=== PATIENT | female | born 1965 | race African-American/Black ===

== ENCOUNTER 2018-07-07 | Inpatient (IN) | payer MEDICAID, OTHER ==
[~2018-07-07] VITALS: Ht 165.1 cm; Wt 73.2 kg
[~2018-07-07] MED LIST: FOLI-43 PO; HYDR-519 PO
[2018-07-07 04:31] LABS: CHLORIDE 100 mEq/L (98-107)
[2018-07-07] MEDS ORDERED: MORPHINE SULFATE 10 MG/ML CPJ IV SCH (05:00)
[2018-07-07] MEDS ORDERED: DIPHENHYDRAMINE 25MG CAPSULE PO SCH (05:00)
[2018-07-07 06:33] LABS: HEMATOCRIT. 44.9 % (36.0-48.0); HEMOGLOBIN. 14.9 g/dL (12.0-16.0); MEAN CORPUSCULAR HEMOGLOBIN 32.8 pg (28.0-32.0); MEAN CORPUSCULAR VOLUME 98.8 fL (81.0-99.0); MEAN PLATELET VOLUME 10.9 fl (7.4-10.4); PLATELET 295 x1000/uL (130-400); RED BLOOD CELL COUNT 4.55 mill/uL (4.2-5.4); RED CELL DISTRIBUTION WIDTH 42.4 % (11.6-14.6)
[2018-07-07] MEDS ORDERED: VANCOMYCIN 1 G PREMIX 200 ML IV SCH (06:45)
[2018-07-07] MEDS ORDERED: HYDROMORPHONE HCL/PF 2MG/ML CPJ IV ONE (06:45)
[2018-07-07] MEDS ORDERED: PIPERACILLIN/TAZOBACTAM 3.375GM/50ML PREMIX IV ONE (06:45)
[2018-07-07 07:41] LABS: NUCLEATED RED BLOOD CELLS 89 /100 WBC
[2018-07-07 07:44] LABS: PLATELET ESTIMATE NORMAL
[2018-07-07] MEDS ORDERED: ONDANSETRON HCL 4MG/2ML INJ IV PRN (07:45)
[2018-07-07 07:52] LABS: CLARITY URINE TURBID (CLEAR); COLOR URINE RED (YELLOW); KETONES URINE 2+ (NEGATIVE); LEUKOCYTE ESTERASE URINE 2+ (NEGATIVE); NITRITE URINE POSITIVE (NEGATIVE); OCCULT BLOOD URINE 3+ (NEGATIVE); PROTEIN URINE 3+ (NEGATIVE); SPECIFIC GRAVITY URINE 1.015 (1.005-1.030)
[2018-07-07] MEDS: MORPHINE SULFATE 10 MG/ML CPJ IV PRN ×3 (08:24→20:52)
[2018-07-07] MEDS: DIPHENHYDRAMINE 50MG/ML VIAL IV PRN ×2 (08:24→15:24)
[2018-07-07 09:00] VITALS: BP 153/88
[2018-07-07 09:10] LABS: *BARBITURATES SCREEN URINE NEGATIVE (NEGATIVE)
[2018-07-07 09:13] LABS: *AMPHETAMINES SCREEN URINE NEGATIVE (NEGATIVE)
[2018-07-07] MEDS ORDERED: ESTR0.3T3 MT (09:21)
[2018-07-07] MEDS ORDERED: OXYC30TA89 MT (09:21)
[2018-07-07 09:50] LABS: *BENZODIAZEPINES SCREEN URINE NEGATIVE (NEGATIVE); *COCAINE SCREEN URINE NEGATIVE (NEGATIVE); CANNABINOID URINE SCREEN NEGATIVE (NEGATIVE); METHADONE URINE SCREEN NEGATIVE (NEGATIVE); OPIATES URINE SCREEN PRESUMTIVE POSITIVE (NEGATIVE); PHENCYCLIDINE URINE SCREEN NEGATIVE (NEGATIVE)
[2018-07-07] MEDS ORDERED: DOCU-138 PO (10:06)
[2018-07-07] MEDS: FOLIC ACID 1MG TABLET PO SCH (10:24)
[2018-07-07] MEDS: AMLODIPINE 5MG TABLET PO SCH ×2 (10:25→20:44)
[2018-07-07 12:00] VITALS: BP 154/89
[2018-07-07] MEDS: CEFTRIAXONE 1 G PREMIX 50 ML IV SCH (15:23)
[2018-07-07 16:00] VITALS: BP 134/77
[2018-07-07] MEDS: HYDROCODONE/ACETAMINOPHEN 10/325MG TABLET PO PRN ×2 (17:10→22:54)
[2018-07-07 20:00] VITALS: BP 138/77
[2018-07-08] VITALS (7 sets, daily range): BP systolic 124–146; BP diastolic 69–87
[2018-07-08 00:41] LABS: HEMATOCRIT. 22.6 % (36.0-48.0); MEAN CORPUSCULAR HEMOGLOBIN 36.5 pg (28.0-32.0); MEAN CORPUSCULAR VOLUME 104.8 fL (81.0-99.0); MEAN PLATELET VOLUME 8.3 fl (7.4-10.4); PLATELET 188 x1000/uL (130-400); RED BLOOD CELL COUNT 2.15 mill/uL (4.2-5.4); RED CELL DISTRIBUTION WIDTH 28.5 % (11.6-14.6)
[2018-07-08] MEDS: MORPHINE SULFATE 10 MG/ML CPJ IV PRN ×5 (00:49→22:07)
[2018-07-08] MEDS: DIPHENHYDRAMINE 50MG/ML VIAL IV PRN ×3 (00:56→17:26)
[2018-07-08 01:00] LABS: HEMOGLOBIN. 7.8 g/dL (12.0-16.0)
[2018-07-08] MEDS: HYDROCODONE/ACETAMINOPHEN 10/325MG TABLET PO PRN ×4 (03:26→18:58)
[2018-07-08 06:55] LABS: HEMATOCRIT. 24.4 % (36.0-48.0); HEMOGLOBIN. 8.4 g/dL (12.0-16.0); MEAN CORPUSCULAR HEMOGLOBIN 36.6 pg (28.0-32.0); MEAN CORPUSCULAR VOLUME 105.6 fL (81.0-99.0); MEAN PLATELET VOLUME 7.8 fl (7.4-10.4); PLATELET 185 x1000/uL (130-400); RED BLOOD CELL COUNT 2.31 mill/uL (4.2-5.4); RED CELL DISTRIBUTION WIDTH 28.9 % (11.6-14.6)
[2018-07-08 07:10] LABS: CHLORIDE 99 mEq/L (98-107)
[2018-07-08 08:30] LABS: NUCLEATED RED BLOOD CELLS 339 /100 WBC; PLATELET ESTIMATE NORMAL
[2018-07-08] MEDS: AMLODIPINE 5MG TABLET PO SCH ×2 (08:35→20:16)
[2018-07-08] MEDS: FOLIC ACID 1MG TABLET PO SCH (08:35)
[2018-07-08] MEDS ORDERED: LACTULOSE 20G/30ML UDC PO NR (11:45)
[2018-07-08 14:24] LABS: NUCLEATED RED BLOOD CELLS 239 /100 WBC
[2018-07-08 14:28] LABS: PLATELET ESTIMATE NORMAL
[2018-07-08] MEDS: DOCUSATE SODIUM 250MG CAPSULE PO SCH (15:02)
[2018-07-08] MEDS: CEFTRIAXONE 1 G PREMIX 50 ML IV SCH (15:02)
[2018-07-09] VITALS: BP 119/75
[2018-07-09] MEDS: DIPHENHYDRAMINE 50MG/ML VIAL IV PRN ×2 (02:53→20:49)
[2018-07-09] MEDS: MORPHINE SULFATE 10 MG/ML CPJ IV PRN ×3 (02:54→20:49)
[2018-07-09 04:00] VITALS: BP 133/83
[2018-07-09] MEDS: HYDROCODONE/ACETAMINOPHEN 10/325MG TABLET PO PRN ×2 (06:09→11:46)
[2018-07-09 07:49] LABS: HEMATOCRIT. 28.2 % (36.0-48.0); HEMOGLOBIN. 9.6 g/dL (12.0-16.0); MEAN CORPUSCULAR HEMOGLOBIN 37.5 pg (28.0-32.0); MEAN CORPUSCULAR VOLUME 110.7 fL (81.0-99.0); MEAN PLATELET VOLUME 8.6 fl (7.4-10.4); PLATELET 171 x1000/uL (130-400); RED BLOOD CELL COUNT 2.55 mill/uL (4.2-5.4); RED CELL DISTRIBUTION WIDTH 27.8 % (11.6-14.6)
[2018-07-09 08:00] VITALS: BP 120/69
[2018-07-09 08:14] LABS: CHLORIDE 99 mEq/L (98-107)
[2018-07-09] MEDS ORDERED: POLYETHYLENE GLYCOL 3350 (17GM) 1 DOSE PACK PO SCH (09:00)
[2018-07-09] MEDS: FOLIC ACID 1MG TABLET PO SCH (09:19)
[2018-07-09] MEDS: DOCUSATE SODIUM 250MG CAPSULE PO SCH (09:23)
[2018-07-09] MEDS: AMLODIPINE 5MG TABLET PO SCH ×2 (09:23→20:48)
[2018-07-09] MEDS: POLYETHYLENE GLYCOL 3350 (17GM) 1 DOSE PACK PO SCH ×2 (09:26→09:31)
[2018-07-09 10:20] LABS: NUCLEATED RED BLOOD CELLS 225 /100 WBC
[2018-07-09 10:22] LABS: PLATELET ESTIMATE NORMAL
[2018-07-09 12:00] VITALS: BP 113/67
[2018-07-09] MEDS: CEFTRIAXONE 1 G PREMIX 50 ML IV SCH (15:11)
[2018-07-09 16:00] VITALS: BP 105/70
[2018-07-09 20:00] VITALS: BP 114/66
[2018-07-10] VITALS (42 sets, daily range): BP systolic 95–169; BP diastolic 53–104
[2018-07-10] MEDS: AMLODIPINE 5MG TABLET PO SCH ×2 (09:00→22:40)
[2018-07-10] MEDS: DOCUSATE SODIUM 250MG CAPSULE PO SCH (09:00)
[2018-07-10] MEDS: FOLIC ACID 1MG TABLET PO SCH (09:00)
[2018-07-10] MEDS ORDERED: IOHEXOL-300 50 ML BOTTLE IV ONE (10:49)
[2018-07-10] MEDS ORDERED: ETOMIDATE 2MG/ML 10ML VIAL IV ONE (12:16)
[2018-07-10] MEDS ORDERED: VECURONIUM BROMIDE 10 MG/VIAL IV ONE (12:16)
[2018-07-10] MEDS ORDERED: SODIUM CHLORIDE 0.9% 10ML VIAL ONE ×2 (12:16→19:09)
[2018-07-10 12:48] LABS: T4 FREE 1.12 ng/dL (0.76-1.46)
[2018-07-10 13:26] LABS: VITAMIN B12 SERUM > 2000.0 pg/mL (211-911)
[2018-07-10] MEDS ORDERED: MANNITOL 12.5G (25%) VIAL 50ML IV ONE (15:00)
[2018-07-10] MEDS ORDERED: MANNITOL 20% 200 ML IV ONE (15:00)
[2018-07-10] MEDS: LEVETIRACETAM 500 MG in SODIUM CHLORIDE 0.9% 100 ML IV SCH ×2 (15:19→15:26)
[2018-07-10] MEDS: CEFTRIAXONE 1 G PREMIX 50 ML IV SCH (15:20)
[2018-07-10] MEDS: DEXAMETHASONE 10 MG/ML VIAL IV SCH ×2 (15:24→15:25)
[2018-07-10] MEDS: NICARDIPINE 50 MG in SODIUM CHLORIDE 0.9% 230 ML IV PRN (15:27)
[2018-07-10] MEDS: DEXT 5%/LACTATED RINGERS 1,000 ML IV SCH ×2 (15:34→23:15)
[2018-07-10 15:46] LABS: BG BASE EXCESS 2.6 mmol/L (-2.0-2.0); BG CARBOXYHEMOGLOBIN 2.3 % (0.5-1.5); BG DEOXYHEMOGLOBIN 1.3 % (0.0-5.0); BG FRACTION INSPIRED OXYGEN 32; BG HCO3 ACT 24.3 mmol/L (22.0-26.0); BG METHEMOGLOBIN 0.8 % (0.0-1.5); BG OXYGEN SATURATION 98.7 % (92.0-98.5); BG OXYHEMOGLOBIN 95.6 % (94.0-97.0); BG PCO2 26.5 mmHg (35.0-45.0); BG PO2 109.3 mmHg (75.0-100.0); BG SAMPLE SITE LEFT BRACHIAL; BG TOTAL HEMOGLOBIN 7.9 g/dL (12.0-18.0); BG VENT MODE NASAL CANNULA
[2018-07-10] MEDS ORDERED: GADOBENATE DIMEGLUMINE 529 MG/ML 10ML IV ONE (16:18)
[2018-07-10 16:35] LABS: INR 1.9; PARTIAL THROMBOPLASTIN TIME 28.5 sec (23.4-31.0)
[2018-07-10 16:55] LABS: CHLORIDE 103 mEq/L (98-107)
[2018-07-10 16:57] LABS: HEMATOCRIT. 22.4 % (36.0-48.0); HEMOGLOBIN. 7.6 g/dL (12.0-16.0); MEAN CORPUSCULAR HEMOGLOBIN 36.8 pg (28.0-32.0); MEAN CORPUSCULAR VOLUME 108.4 fL (81.0-99.0); MEAN PLATELET VOLUME 9.1 fl (7.4-10.4); PLATELET 188 x1000/uL (130-400); RED BLOOD CELL COUNT 2.07 mill/uL (4.2-5.4); RED CELL DISTRIBUTION WIDTH 25.8 % (11.6-14.6)
[2018-07-10] MEDS ORDERED: GELATIN SPONGE,ABSORBABLE 12-7MM SPONGE ONE ×2 (17:27→17:55)
[2018-07-10] MEDS ORDERED: THROMBIN (BOVINE) 5000 UNITS/VIAL TOP ONE ×3 (17:28→17:55)
[2018-07-10] MEDS ORDERED: LIDOCAINE HCL/EPINEPHRINE 1%-EPI 1:100,000 20 ML VIAL ONE (17:29)
[2018-07-10 17:31] LABS: BG BASE EXCESS 2.3 mmol/L (-2.0-2.0); BG CARBOXYHEMOGLOBIN 1.8 % (0.5-1.5); BG DEOXYHEMOGLOBIN 0.3 % (0.0-5.0); BG FRACTION INSPIRED OXYGEN 100; BG METHEMOGLOBIN 0.8 % (0.0-1.5); BG OXYGEN SATURATION 99.7 % (92.0-98.5); BG OXYHEMOGLOBIN 97.1 % (94.0-97.0); BG PCO2 22.5 mmHg (35.0-45.0); BG PH 7.628 (7.350-7.450); BG PO2 478.1 mmHg (75.0-100.0); BG SAMPLE SITE RIGHT RADIAL; BG TIDAL VOLUME(mL) 500 mL; BG TOTAL HEMOGLOBIN 8.1 g/dL (12.0-18.0); BG VENT MODE VENT - A/C; BG VENT RATE 14 set
[2018-07-10] MEDS ORDERED: NORMAL SALINE 0.9% 10 ML SYR ONE (17:42)
[2018-07-10] MEDS ORDERED: BACITRACIN 15GM TUBE TOP ONE (17:42)
[2018-07-10] MEDS ORDERED: BACITRACIN 50,000 UNITS/VIAL ONE (17:42)
[2018-07-10] MEDS ORDERED: MANNITOL 20% (20GM/100ML) BAG 500ML PREMIX IV NR (17:45)
[2018-07-10] MEDS: PHYTONADIONE 10MG/ML AMP SUBCUT SCH (17:48)
[2018-07-10] MEDS ORDERED: DEXAMETHASONE 4MG/ML 1ML VIAL IV SCH (18:00)
[2018-07-10] MEDS ORDERED: ROCURONIUM BROMIDE 10MG/ML VIAL 5ML IV ONE ×2 (18:38→19:25)
[2018-07-10] MEDS ORDERED: PROPOFOL 200MG/20ML VIAL IV ONE (18:55)
[2018-07-10] MEDS ORDERED: LEVETIRACETAM 500MG PREMIX 100 ML IV NR (19:00)
[2018-07-10] MEDS ORDERED: EPHEDRINE SULFATE 50MG/ML VIAL ONE (19:09)
[2018-07-10] MEDS ORDERED: PROPOFOL 10MG/ML 100ML 100 ML IV PRN (20:30)
[2018-07-10] MEDS ORDERED: CEFAZOLIN 1000MG PREMIX 50 ML IV SCH (22:00)
[2018-07-10] MEDS ORDERED: CEFAZOLIN SODIUM 1000MG/VIAL IV SCH (22:00)
[2018-07-10] MEDS: CEFAZOLIN 1000MG PREMIX 50 ML IV SCH (22:40)
[2018-07-10 23:09] LABS: NUCLEATED RED BLOOD CELLS 42 /100 WBC
[2018-07-10 23:12] LABS: PLATELET ESTIMATE NORMAL
[2018-07-10] MEDS: DEXAMETHASONE 4MG/ML 1ML VIAL IV SCH (23:56)
[2018-07-11] VITALS (93 sets, daily range): BP systolic 96–143; BP diastolic 54–84
[2018-07-11 05:29] LABS: MEAN CORPUSCULAR HEMOGLOBIN 37.9 pg (28.0-32.0); MEAN CORPUSCULAR VOLUME 113.3 fL (81.0-99.0); MEAN PLATELET VOLUME 9.4 fl (7.4-10.4); PLATELET 160 x1000/uL (130-400); RED BLOOD CELL COUNT 1.55 mill/uL (4.2-5.4); RED CELL DISTRIBUTION WIDTH 25.3 % (11.6-14.6)
[2018-07-11 05:39] LABS: CHLORIDE 112 mEq/L (98-107)
[2018-07-11 06:13] LABS: HEMOGLOBIN. 5.9 g/dL (12.0-16.0)
[2018-07-11 06:14] LABS: HEMATOCRIT. 17.6 % (36.0-48.0)
[2018-07-11] MEDS: CEFAZOLIN 1000MG PREMIX 50 ML IV SCH ×3 (06:29→21:22)
[2018-07-11] MEDS: DEXAMETHASONE 4MG/ML 1ML VIAL IV SCH ×3 (06:29→17:36)
[2018-07-11 08:29] LABS: BG BASE EXCESS 3.7 mmol/L (-2.0-2.0); BG CARBOXYHEMOGLOBIN 2.7 % (0.5-1.5); BG DEOXYHEMOGLOBIN 0.2 % (0.0-5.0); BG FRACTION INSPIRED OXYGEN 100; BG HCO3 ACT 25.7 mmol/L (22.0-26.0); BG METHEMOGLOBIN 0.2 % (0.0-1.5); BG OXYGEN SATURATION 99.8 % (92.0-98.5); BG OXYHEMOGLOBIN 96.9 % (94.0-97.0); BG PCO2 27.4 mmHg (35.0-45.0); BG SAMPLE SITE RIGHT BRACHIAL; BG TIDAL VOLUME(mL) 500 mL; BG VENT MODE VENT - A/C; BG VENT RATE 14 set
[2018-07-11] MEDS ORDERED: CLOPIDOGREL 75MG TABLET PO SCH (09:00)
[2018-07-11] MEDS: FOLIC ACID 1MG TABLET PO SCH (09:00)
[2018-07-11] MEDS ORDERED: ACETAMINOPHEN 650MG SUPP PR PRN (09:00)
[2018-07-11] MEDS: PHYTONADIONE 10MG/ML AMP SUBCUT SCH (09:00)
[2018-07-11] MEDS: POLYETHYLENE GLYCOL 3350 (17GM) 1 DOSE PACK PO SCH (09:00)
[2018-07-11] MEDS: AMLODIPINE 5MG TABLET PO SCH ×2 (09:00→20:25)
[2018-07-11] MEDS: DOCUSATE SODIUM 250MG CAPSULE PO SCH (09:00)
[2018-07-11] MEDS: LEVETIRACETAM 500 MG in SODIUM CHLORIDE 0.9% 100 ML IV SCH ×2 (09:08→21:22)
[2018-07-11] MEDS ORDERED: POTASSIUM CHLORIDE INJ 40 MEQ in DEXT 5% WATER 250 ML IV SCH (10:00)
[2018-07-11 10:31] LABS: INR 1.9; PROTHROMBIN TIME 18.7 sec (9.1-11.1)
[2018-07-11] MEDS ORDERED: PHENYLEPHRINE HCL 10 MG/ML 1ML (IV VIAL) IV ONE (10:46)
[2018-07-11] MEDS ORDERED: EPHEDRINE SULFATE 50MG/ML VIAL ONE (10:46)
[2018-07-11] MEDS ORDERED: FENTANYL CITRATE/PF 50MCG/ML 2ML VIAL ONE ×2 (10:49→12:18)
[2018-07-11] MEDS ORDERED: PROPOFOL 200MG/20ML VIAL IV ONE ×3 (10:49→13:37)
[2018-07-11] MEDS ORDERED: ROCURONIUM BROMIDE 10MG/ML VIAL 5ML IV ONE ×2 (10:49→12:31)
[2018-07-11] MEDS ORDERED: DEXAMETHASONE 4MG/ML 1ML VIAL ONE (10:51)
[2018-07-11] MEDS ORDERED: BACITRACIN 15GM TUBE TOP ONE (10:52)
[2018-07-11] MEDS ORDERED: NORMAL SALINE 0.9% 10 ML SYR ONE (10:52)
[2018-07-11] MEDS ORDERED: BACITRACIN 50,000 UNITS/VIAL ONE (10:52)
[2018-07-11] MEDS ORDERED: GELATIN SPONGE,ABSORBABLE 12-7MM SPONGE ONE (10:53)
[2018-07-11] MEDS ORDERED: THROMBIN (BOVINE) 5000 UNITS/VIAL TOP ONE (10:53)
[2018-07-11] MEDS ORDERED: LIDOCAINE HCL/EPINEPHRINE 1%-EPI 1:100,000 20 ML VIAL ONE (10:56)
[2018-07-11] MEDS ORDERED: HUMAN PROTHROMBIN COMPLX (PCC) 500 UNITS VIAL IV NR (11:00)
[2018-07-11] MEDS ORDERED: CEFAZOLIN SODIUM 1000MG/VIAL ONE (12:14)
[2018-07-11 13:49] LABS: NUCLEATED RED BLOOD CELLS 38 /100 WBC; PLATELET ESTIMATE NORMAL
[2018-07-11 13:57] LABS: HEMATOCRIT. 27.8 % (36.0-48.0); HEMOGLOBIN. 9.4 g/dL (12.0-16.0); MEAN CORPUSCULAR HEMOGLOBIN 31.8 pg (28.0-32.0); MEAN CORPUSCULAR VOLUME 94.1 fL (81.0-99.0); MEAN PLATELET VOLUME 9.2 fl (7.4-10.4); PLATELET 104 x1000/uL (130-400); RED BLOOD CELL COUNT 2.95 mill/uL (4.2-5.4); RED CELL DISTRIBUTION WIDTH 17.9 % (11.6-14.6)
[2018-07-11 14:03] LABS: INR 1.4; PARTIAL THROMBOPLASTIN TIME 28.1 sec (23.4-31.0); PROTHROMBIN TIME 14.2 sec (9.1-11.1)
[2018-07-11 14:06] LABS: CHLORIDE 114 mEq/L (98-107)
[2018-07-11 14:55] LABS: NUCLEATED RED BLOOD CELLS 20 /100 WBC; PLATELET ESTIMATE SLIGHTLY DECREASED
[2018-07-11] MEDS: CEFTRIAXONE 1 G PREMIX 50 ML IV SCH (15:59)
[2018-07-11 17:35] LABS: HEMATOCRIT 29.2 % (36.0-48.0); HEMOGLOBIN 10.2 g/dL (12.0-16.0)
[2018-07-11] MEDS: DEXT 5%/LACTATED RINGERS 1,000 ML IV SCH (17:39)
[2018-07-11] MEDS ORDERED: CALCIUM CHLORIDE 1GM/10ML SYR IV NR (19:45)
[2018-07-12] VITALS (100 sets, daily range): BP systolic -5–127; BP diastolic -8–79
[2018-07-12] MEDS: DEXAMETHASONE 4MG/ML 1ML VIAL IV SCH ×5 (00:34→23:31)
[2018-07-12 01:06] LABS: HEMATOCRIT 32.5 % (36.0-48.0); HEMOGLOBIN 11.1 g/dL (12.0-16.0)
[2018-07-12] MEDS: NICARDIPINE 50 MG in SODIUM CHLORIDE 0.9% 230 ML IV PRN ×2 (03:02→10:51)
[2018-07-12] MEDS: PROPOFOL 10MG/ML 100ML 100 ML IV PRN ×2 (04:38→09:51)
[2018-07-12] MEDS: CEFAZOLIN 1000MG PREMIX 50 ML IV SCH ×3 (05:07→21:20)
[2018-07-12 05:44] LABS: HEMATOCRIT. 31.5 % (36.0-48.0); HEMOGLOBIN. 10.8 g/dL (12.0-16.0); MEAN CORPUSCULAR VOLUME 93.4 fL (81.0-99.0); MEAN PLATELET VOLUME 8.7 fl (7.4-10.4); PLATELET 204 x1000/uL (130-400); RED BLOOD CELL COUNT 3.37 mill/uL (4.2-5.4); RED CELL DISTRIBUTION WIDTH 19.9 % (11.6-14.6)
[2018-07-12 05:57] LABS: CHLORIDE 117 mEq/L (98-107)
[2018-07-12 06:23] LABS: HEPATITIS B SURFACE ANTIGEN NEGATIVE
[2018-07-12 06:52] LABS: HEPATITIS A AB IGM NEGATIVE (NEGATIVE)
[2018-07-12] MEDS: POLYETHYLENE GLYCOL 3350 (17GM) 1 DOSE PACK PO SCH (09:00)
[2018-07-12] MEDS: FOLIC ACID 1MG TABLET PO SCH (09:00)
[2018-07-12] MEDS: AMLODIPINE 5MG TABLET PO SCH ×2 (09:00→21:00)
[2018-07-12] MEDS: DOCUSATE SODIUM 250MG CAPSULE PO SCH (09:00)
[2018-07-12 09:09] LABS: BG BASE EXCESS -0.4 mmol/L (-2.0-2.0); BG CARBOXYHEMOGLOBIN 0.2 % (0.5-1.5); BG DEOXYHEMOGLOBIN 1.2 % (0.0-5.0); BG FRACTION INSPIRED OXYGEN 50; BG HCO3 ACT 22.4 mmol/L (22.0-26.0); BG METHEMOGLOBIN 0.5 % (0.0-1.5); BG OXYGEN SATURATION 98.8 % (92.0-98.5); BG OXYHEMOGLOBIN 98.1 % (94.0-97.0); BG PCO2 29.9 mmHg (35.0-45.0); BG PH 7.492 (7.350-7.450); BG PO2 166.6 mmHg (75.0-100.0); BG SAMPLE SITE A-LINE; BG TIDAL VOLUME(mL) 500 mL; BG TOTAL HEMOGLOBIN 9.2 g/dL (12.0-18.0); BG VENT MODE VENT - A/C; BG VENT RATE 14 set
[2018-07-12] MEDS: PHYTONADIONE 10MG/ML AMP SUBCUT SCH (09:50)
[2018-07-12] MEDS: PANTOPRAZOLE SODIUM 40 MG/VIAL IV SCH (09:50)
[2018-07-12] MEDS: LEVETIRACETAM 500 MG in SODIUM CHLORIDE 0.9% 100 ML IV SCH ×2 (09:50→21:11)
[2018-07-12] MEDS: DEXT 5%/LACTATED RINGERS 1,000 ML IV SCH ×2 (09:51→15:15)
[2018-07-12] MEDS ORDERED: DEXTROSE 5% WATER 1,000 ML IV SCH (10:30)
[2018-07-12 10:45] LABS: NUCLEATED RED BLOOD CELLS 6 /100 WBC; PLATELET ESTIMATE NORMAL
[2018-07-12] MEDS ORDERED: KCL 20MEQ/100ML PREMIX 100 ML IV NR (14:00)
[2018-07-12] MEDS: CEFTRIAXONE 1 G PREMIX 50 ML IV SCH (15:15)
[2018-07-12] MEDS ORDERED: SODIUM CHLORIDE 0.9% 250 ML IV NR (17:00)
[2018-07-12 17:15] LABS: HEMATOCRIT 28.9 % (36.0-48.0); HEMOGLOBIN 9.8 g/dL (12.0-16.0)
[2018-07-12 23:56] LABS: HEMATOCRIT 33.5 % (36.0-48.0); HEMOGLOBIN 11.3 g/dL (12.0-16.0)
[2018-07-13] VITALS (105 sets, daily range): BP systolic -14–119; BP diastolic -14–101
[2018-07-13] MEDS: PROPOFOL 10MG/ML 100ML 100 ML IV PRN (01:09)
[2018-07-13 05:32] LABS: CHLORIDE 122 mEq/L (98-107)
[2018-07-13] MEDS: DEXAMETHASONE 4MG/ML 1ML VIAL IV SCH ×4 (05:33→23:43)
[2018-07-13 05:34] LABS: HEMATOCRIT. 34.8 % (36.0-48.0); HEMOGLOBIN. 11.7 g/dL (12.0-16.0); MEAN CORPUSCULAR HEMOGLOBIN 31.6 pg (28.0-32.0); MEAN CORPUSCULAR VOLUME 94.1 fL (81.0-99.0); PLATELET 187 x1000/uL (130-400); RED CELL DISTRIBUTION WIDTH 18.2 % (11.6-14.6)
[2018-07-13] MEDS: DEXT 5%/LACTATED RINGERS 1,000 ML IV SCH ×2 (08:30→23:37)
[2018-07-13] MEDS: DOCUSATE SODIUM 250MG CAPSULE PO SCH (09:00)
[2018-07-13] MEDS: FOLIC ACID 1MG TABLET PO SCH (09:00)
[2018-07-13] MEDS: AMLODIPINE 5MG TABLET PO SCH ×2 (09:00→20:56)
[2018-07-13] MEDS: POLYETHYLENE GLYCOL 3350 (17GM) 1 DOSE PACK PO SCH (09:00)
[2018-07-13 09:22] LABS: BG BASE EXCESS -2.2 mmol/L (-2.0-2.0); BG CARBOXYHEMOGLOBIN 1.2 % (0.5-1.5); BG DEOXYHEMOGLOBIN 1.4 % (0.0-5.0); BG FRACTION INSPIRED OXYGEN 40; BG HCO3 ACT 20.5 mmol/L (22.0-26.0); BG METHEMOGLOBIN 0.3 % (0.0-1.5); BG OXYGEN SATURATION 98.6 % (92.0-98.5); BG OXYHEMOGLOBIN 97.1 % (94.0-97.0); BG PCO2 28.6 mmHg (35.0-45.0); BG PH 7.473 (7.350-7.450); BG PO2 140.2 mmHg (75.0-100.0); BG SAMPLE SITE A-LINE; BG TIDAL VOLUME(mL) 500 mL; BG TOTAL HEMOGLOBIN 10.9 g/dL (12.0-18.0); BG VENT MODE VENT - A/C; BG VENT RATE 14 set
[2018-07-13 09:25] LABS: NUCLEATED RED BLOOD CELLS 17 /100 WBC
[2018-07-13 09:28] LABS: PLATELET ESTIMATE NORMAL
[2018-07-13] MEDS: LEVETIRACETAM 500 MG in SODIUM CHLORIDE 0.9% 100 ML IV SCH ×2 (09:32→20:56)
[2018-07-13] MEDS: PANTOPRAZOLE SODIUM 40 MG/VIAL IV SCH (09:32)
[2018-07-13] MEDS ORDERED: PROPOFOL 10MG/ML 100ML 100 ML IV PRN (10:30)
[2018-07-13] MEDS: NICARDIPINE 50 MG in SODIUM CHLORIDE 0.9% 230 ML IV PRN ×2 (11:05→21:15)
[2018-07-13 14:17] LABS: ANTI-CARDIOLIPIN AB IGA 20 APL U/mL (0-11); ANTI-CARDIOLIPIN AB IGG < 9 GPL U/mL (0-14); ANTI-CARDIOLIPIN AB IGM 12 MPL U/mL (0-12)
[2018-07-13] MEDS: CEFTRIAXONE 1 G PREMIX 50 ML IV SCH (15:33)
[2018-07-14] VITALS (112 sets, daily range): BP systolic -11–146; BP diastolic -14–82
[2018-07-14 05:23] LABS: HEMATOCRIT. 33.8 % (36.0-48.0); HEMOGLOBIN. 11.6 g/dL (12.0-16.0); MEAN CORPUSCULAR HEMOGLOBIN 32.3 pg (28.0-32.0); MEAN CORPUSCULAR VOLUME 94.3 fL (81.0-99.0); MEAN PLATELET VOLUME 8.4 fl (7.4-10.4); PLATELET 185 x1000/uL (130-400); RED BLOOD CELL COUNT 3.59 mill/uL (4.2-5.4); RED CELL DISTRIBUTION WIDTH 20.9 % (11.6-14.6)
[2018-07-14 05:27] LABS: CHLORIDE 128 mEq/L (98-107)
[2018-07-14] MEDS: DEXAMETHASONE 4MG/ML 1ML VIAL IV SCH ×4 (05:44→23:30)
[2018-07-14 07:16] LABS: NUCLEATED RED BLOOD CELLS 11 /100 WBC; PLATELET ESTIMATE NORMAL
[2018-07-14 08:43] LABS: BG BASE EXCESS -1.2 mmol/L (-2.0-2.0); BG CARBOXYHEMOGLOBIN 1.4 % (0.5-1.5); BG DEOXYHEMOGLOBIN 1.7 % (0.0-5.0); BG FRACTION INSPIRED OXYGEN 40; BG HCO3 ACT 21.6 mmol/L (22.0-26.0); BG METHEMOGLOBIN 0.2 % (0.0-1.5); BG OXYGEN SATURATION 98.3 % (92.0-98.5); BG OXYHEMOGLOBIN 96.7 % (94.0-97.0); BG PCO2 30.4 mmHg (35.0-45.0); BG SAMPLE SITE RIGHT RADIAL; BG TIDAL VOLUME(mL) 500 mL; BG TOTAL HEMOGLOBIN 12.2 g/dL (12.0-18.0); BG VENT MODE VENT - A/C; BG VENT RATE 14 set
[2018-07-14] MEDS: AMLODIPINE 5MG TABLET PO SCH ×2 (08:43→21:00)
[2018-07-14] MEDS: FOLIC ACID 1MG TABLET PO SCH (08:43)
[2018-07-14] MEDS: POLYETHYLENE GLYCOL 3350 (17GM) 1 DOSE PACK PO SCH (08:43)
[2018-07-14] MEDS: DOCUSATE SODIUM 250MG CAPSULE PO SCH (08:43)
[2018-07-14 09:06] LABS: IMMUNOGLOBULIN A 1295 mg/dL (87-352); IMMUNOGLOBULIN G 2030 mg/dL (700-1600); IMMUNOGLOBULIN M 132 mg/dL (26-217)
[2018-07-14] MEDS: LEVETIRACETAM 500 MG in SODIUM CHLORIDE 0.9% 100 ML IV SCH ×2 (09:12→21:35)
[2018-07-14] MEDS: PANTOPRAZOLE SODIUM 40 MG/VIAL IV SCH (09:12)
[2018-07-14] MEDS ORDERED: SODIUM CHLORIDE 0.45% 1,000 ML IV SCH (11:30)
[2018-07-14] MEDS: DEXT 5%/0.45% NACL 1000ML 1,000 ML IV SCH (11:46)
[2018-07-14 13:06] LABS: HGB A2 3.2 % (1.8-3.2); HGB F 2.5 % (0.0-2.0); HGB S 28.3 % (0.0); HGB SOLUBILITY Positive (Negative)
[2018-07-14] MEDS: CEFEPIME 1,000 MG in DEXTROSE 5% WATER 50 ML IV SCH (14:16)
[2018-07-14] MEDS: METRONIDAZOLE 500 MG PREMIX 100 ML IV SCH ×2 (14:17→21:35)
[2018-07-15] VITALS (71 sets, daily range): BP systolic -3–142; BP diastolic -3–94
[2018-07-15] MEDS: CEFEPIME 1,000 MG in DEXTROSE 5% WATER 50 ML IV SCH ×2 (01:37→13:05)
[2018-07-15] MEDS: DEXT 5%/0.45% NACL 1000ML 1,000 ML IV SCH ×2 (04:16→21:37)
[2018-07-15 04:35] LABS: HEMOGLOBIN. 12.7 g/dL (12.0-16.0); MEAN CORPUSCULAR VOLUME 95.7 fL (81.0-99.0); MEAN PLATELET VOLUME 8.5 fl (7.4-10.4); PLATELET 171 x1000/uL (130-400); RED BLOOD CELL COUNT 3.97 mill/uL (4.2-5.4)
[2018-07-15 04:50] LABS: CHLORIDE 129 mEq/L (98-107)
[2018-07-15] MEDS: DEXAMETHASONE 4MG/ML 1ML VIAL IV SCH ×3 (06:17→17:02)
[2018-07-15] MEDS: METRONIDAZOLE 500 MG PREMIX 100 ML IV SCH ×3 (06:17→22:18)
[2018-07-15] MEDS: DOCUSATE SODIUM 250MG CAPSULE PO SCH (09:00)
[2018-07-15] MEDS: AMLODIPINE 5MG TABLET PO SCH ×2 (09:20→22:18)
[2018-07-15] MEDS: FOLIC ACID 1MG TABLET PO SCH (09:20)
[2018-07-15] MEDS: POLYETHYLENE GLYCOL 3350 (17GM) 1 DOSE PACK PO SCH (09:20)
[2018-07-15] MEDS: LEVETIRACETAM 500 MG in SODIUM CHLORIDE 0.9% 100 ML IV SCH ×2 (09:21→21:37)
[2018-07-15] MEDS: PANTOPRAZOLE SODIUM 40 MG/VIAL IV SCH (09:21)
[2018-07-15 09:27] LABS: NUCLEATED RED BLOOD CELLS 3 /100 WBC; PLATELET ESTIMATE NORMAL
[2018-07-15] MEDS ORDERED: DEXTROSE 50% WATER 50ML SYRINGE IV PRN (09:30)
[2018-07-15] MEDS: BLOOD SUGAR DIAGNOSTIC STRIP TEST SCH ×3 (12:40→21:37)
[2018-07-15] MEDS: INSULIN LISPRO 100 UNITS/ML SUBCUT SCH ×3 (12:52→22:17)
[2018-07-16] VITALS (94 sets, daily range): BP systolic 116–159; BP diastolic 69–94
[2018-07-16] MEDS: CEFEPIME 1,000 MG in DEXTROSE 5% WATER 50 ML IV SCH ×2 (04:44→14:00)
[2018-07-16] MEDS: DEXAMETHASONE 4MG/ML 1ML VIAL IV SCH ×5 (04:44→23:04)
[2018-07-16 05:12] LABS: CHLORIDE 131 mEq/L (98-107)
[2018-07-16] MEDS: METRONIDAZOLE 500 MG PREMIX 100 ML IV SCH ×3 (05:31→21:20)
[2018-07-16] MEDS: BLOOD SUGAR DIAGNOSTIC STRIP TEST SCH ×4 (06:32→21:17)
[2018-07-16] MEDS: INSULIN LISPRO 100 UNITS/ML SUBCUT SCH ×4 (07:13→21:21)
[2018-07-16] MEDS: DEXT 5%/0.45% NACL 1000ML 1,000 ML IV SCH ×2 (08:00→18:00)
[2018-07-16 11:24] LABS: HEMATOCRIT. 37.8 % (36.0-48.0); HEMOGLOBIN. 12.5 g/dL (12.0-16.0); MEAN CORPUSCULAR HEMOGLOBIN 31.8 pg (28.0-32.0); MEAN CORPUSCULAR VOLUME 96.4 fL (81.0-99.0); MEAN PLATELET VOLUME 9.2 fl (7.4-10.4); PLATELET 139 x1000/uL (130-400); RED BLOOD CELL COUNT 3.92 mill/uL (4.2-5.4); RED CELL DISTRIBUTION WIDTH 21.2 % (11.6-14.6)
[2018-07-16] MEDS: DOCUSATE SODIUM SUGAR FREE 100MG/10ML UDC NG SCH (11:29)
[2018-07-16] MEDS: LEVETIRACETAM 500 MG in SODIUM CHLORIDE 0.9% 100 ML IV SCH ×2 (11:29→20:29)
[2018-07-16] MEDS: PANTOPRAZOLE SODIUM 40 MG/VIAL IV SCH (11:29)
[2018-07-16] MEDS: AMLODIPINE 5MG TABLET PO SCH ×2 (11:30→20:29)
[2018-07-16] MEDS: FOLIC ACID 1MG TABLET PO SCH (11:30)
[2018-07-16] MEDS: POLYETHYLENE GLYCOL 3350 (17GM) 1 DOSE PACK PO SCH (11:42)
[2018-07-16 15:01] LABS: PLATELET ESTIMATE NORMAL
[2018-07-16] MEDS ORDERED: SODIUM POLYSTYRENE SULFONATE 15 G/60 ML BOT PO NR (20:00)
[2018-07-17] VITALS (64 sets, daily range): BP systolic 98–156; BP diastolic 56–136
[2018-07-17] MEDS: CEFEPIME 1,000 MG in DEXTROSE 5% WATER 50 ML IV SCH ×2 (01:45→14:21)
[2018-07-17 05:12] LABS: HEMATOCRIT. 38.9 % (36.0-48.0); HEMOGLOBIN. 12.8 g/dL (12.0-16.0); MEAN CORPUSCULAR HEMOGLOBIN 31.6 pg (28.0-32.0); MEAN CORPUSCULAR VOLUME 96.2 fL (81.0-99.0); RED BLOOD CELL COUNT 4.04 mill/uL (4.2-5.4); RED CELL DISTRIBUTION WIDTH 20.5 % (11.6-14.6)
[2018-07-17 05:15] LABS: CHLORIDE 134 mEq/L (98-107)
[2018-07-17] MEDS: BLOOD SUGAR DIAGNOSTIC STRIP TEST SCH ×4 (05:58→21:28)
[2018-07-17] MEDS: METRONIDAZOLE 500 MG PREMIX 100 ML IV SCH ×3 (05:59→21:42)
[2018-07-17] MEDS: DEXAMETHASONE 4MG/ML 1ML VIAL IV SCH ×4 (05:59→23:34)
[2018-07-17] MEDS: INSULIN LISPRO 100 UNITS/ML SUBCUT SCH ×4 (06:16→21:43)
[2018-07-17] MEDS: DEXT 5%/0.45% NACL 1000ML 1,000 ML IV SCH (06:25)
[2018-07-17] MEDS: POLYETHYLENE GLYCOL 3350 (17GM) 1 DOSE PACK PO SCH (09:00)
[2018-07-17] MEDS: DOCUSATE SODIUM SUGAR FREE 100MG/10ML UDC NG SCH (09:00)
[2018-07-17 09:05] LABS: PLATELET ESTIMATE SLIGHTLY DECREASED
[2018-07-17 09:09] LABS: PLATELET 104 x1000/uL (130-400)
[2018-07-17] MEDS: LEVETIRACETAM 500 MG in SODIUM CHLORIDE 0.9% 100 ML IV SCH ×2 (10:40→21:41)
[2018-07-17] MEDS: PANTOPRAZOLE SODIUM 40 MG/VIAL IV SCH (10:40)
[2018-07-17] MEDS: FOLIC ACID 1MG TABLET PO SCH (10:40)
[2018-07-17] MEDS: AMLODIPINE 5MG TABLET PO SCH ×2 (10:41→21:42)
[2018-07-17] MEDS ORDERED: POTASSIUM CHLORIDE 20MEQ/PACKET NG NR (12:00)
[2018-07-17] MEDS: ACETAMINOPHEN 650MG/20.3ML UDC PO PRN (12:14)
[2018-07-17 15:06] LABS: ANTI-THROMBIN ACTIVITY 63 % (75-135); DRVVT LA 36.8 sec (0.0-47.0); PROTEIN C FUNCTIONAL 31 % (73-180); PTT-LA 40.4 sec (0.0-51.9)
[2018-07-17] MEDS: SODIUM CHLORIDE 0.45% 1,000 ML IV SCH (21:43)
[2018-07-17] MEDS ORDERED: INSULIN GLARGINE UD 100 UNITS/ML SYR SUBCUT NR (22:00)
[2018-07-18] VITALS (104 sets, daily range): BP systolic 105–149; BP diastolic 62–91
[2018-07-18] MEDS: CEFEPIME 1,000 MG in DEXTROSE 5% WATER 50 ML IV SCH ×2 (01:07→14:00)
[2018-07-18] MEDS: METRONIDAZOLE 500 MG PREMIX 100 ML IV SCH ×3 (05:03→22:12)
[2018-07-18] MEDS: ACETAMINOPHEN 650MG/20.3ML UDC PO PRN (05:03)
[2018-07-18] MEDS: DEXAMETHASONE 4MG/ML 1ML VIAL IV SCH ×4 (05:03→23:07)
[2018-07-18 06:20] LABS: PROTHROMBIN TIME 19.9 sec (9.1-11.1)
[2018-07-18 06:21] LABS: HEMATOCRIT. 35.8 % (36.0-48.0); HEMOGLOBIN. 11.9 g/dL (12.0-16.0); MEAN CORPUSCULAR HEMOGLOBIN 31.3 pg (28.0-32.0); MEAN CORPUSCULAR VOLUME 94.5 fL (81.0-99.0); RED BLOOD CELL COUNT 3.79 mill/uL (4.2-5.4); RED CELL DISTRIBUTION WIDTH 19.6 % (11.6-14.6)
[2018-07-18] MEDS: BLOOD SUGAR DIAGNOSTIC STRIP TEST SCH ×4 (06:27→20:53)
[2018-07-18] MEDS: INSULIN LISPRO 100 UNITS/ML SUBCUT SCH ×4 (06:32→21:05)
[2018-07-18 06:41] LABS: CHLORIDE 132 mEq/L (98-107)
[2018-07-18 07:02] LABS: PHOSPHORUS 2.3 mg/dL (2.5-4.9)
[2018-07-18 07:13] LABS: LUPUS ANTICOAG INTERPRETATION Comment: (.)
[2018-07-18 07:40] LABS: NUCLEATED RED BLOOD CELLS 1 /100 WBC; PLATELET ESTIMATE DECREASED
[2018-07-18 07:41] LABS: MEAN PLATELET VOLUME 9.5 fl (7.4-10.4); PLATELET 75 x1000/uL (130-400)
[2018-07-18] MEDS: AMLODIPINE 5MG TABLET PO SCH ×3 (09:00→21:00)
[2018-07-18] MEDS: POLYETHYLENE GLYCOL 3350 (17GM) 1 DOSE PACK PO SCH (09:00)
[2018-07-18] MEDS: DOCUSATE SODIUM SUGAR FREE 100MG/10ML UDC NG SCH (09:00)
[2018-07-18] MEDS: FOLIC ACID 1MG TABLET PO SCH (09:00)
[2018-07-18] MEDS ORDERED: POTASSIUM PHOS,M-BASIC-D-BASIC 10 MMOL in DEXT 5% WATER 246.6667 ML IV SCH (09:00)
[2018-07-18 10:04] LABS: PROTHROMBIN TIME 19.9 sec (9.1-11.1)
[2018-07-18] MEDS: PANTOPRAZOLE SODIUM 40 MG/VIAL IV SCH (10:08)
[2018-07-18] MEDS: LEVETIRACETAM 500 MG in SODIUM CHLORIDE 0.9% 100 ML IV SCH ×2 (10:08→20:51)
[2018-07-18 16:26] LABS: INR 1.5; PROTHROMBIN TIME 14.5 sec (9.1-11.1)
[2018-07-18] MEDS ORDERED: VECURONIUM BROMIDE 10 MG/VIAL IV ONE (18:09)
[2018-07-18] MEDS ORDERED: SODIUM CHLORIDE 0.9% 10ML VIAL ONE (18:09)
[2018-07-18] MEDS ORDERED: PHYTONADIONE 10MG/ML AMP SUBCUT NR (18:30)
[2018-07-18] MEDS ORDERED: FENTANYL CITRATE/PF 50MCG/ML 5ML VIAL ONE (18:33)
[2018-07-18] MEDS: METOCLOPRAMIDE HCL 10MG/2ML VIAL IV SCH (23:07)
[2018-07-18] MEDS: SODIUM CHLORIDE 0.45% 1,000 ML IV SCH (23:08)
[2018-07-19] VITALS (93 sets, daily range): BP systolic 103–130; BP diastolic 53–78
[2018-07-19] MEDS: CEFEPIME 1,000 MG in DEXTROSE 5% WATER 50 ML IV SCH ×2 (01:36→14:19)
[2018-07-19 05:30] LABS: CHLORIDE 132 mEq/L (98-107)
[2018-07-19 05:32] LABS: INR 1.7; PARTIAL THROMBOPLASTIN TIME 25.9 sec (23.4-31.0); PROTHROMBIN TIME 17.1 sec (9.1-11.1)
[2018-07-19 05:41] LABS: PHOSPHORUS 2.6 mg/dL (2.5-4.9)
[2018-07-19 05:51] LABS: HEMATOCRIT. 29.2 % (36.0-48.0); HEMOGLOBIN. 9.5 g/dL (12.0-16.0); MEAN CORPUSCULAR HEMOGLOBIN 31.1 pg (28.0-32.0); MEAN CORPUSCULAR VOLUME 95.7 fL (81.0-99.0); RED BLOOD CELL COUNT 3.05 mill/uL (4.2-5.4); RED CELL DISTRIBUTION WIDTH 19.1 % (11.6-14.6)
[2018-07-19] MEDS: DEXAMETHASONE 4MG/ML 1ML VIAL IV SCH ×3 (05:58→17:15)
[2018-07-19] MEDS: METRONIDAZOLE 500 MG PREMIX 100 ML IV SCH ×3 (05:58→21:49)
[2018-07-19] MEDS: BLOOD SUGAR DIAGNOSTIC STRIP TEST SCH ×4 (05:58→21:12)
[2018-07-19] MEDS: METOCLOPRAMIDE HCL 10MG/2ML VIAL IV SCH ×3 (05:58→17:15)
[2018-07-19] MEDS ORDERED: PHYTONADIONE 10MG/ML AMP SUBCUT NR (06:00)
[2018-07-19] MEDS: INSULIN LISPRO 100 UNITS/ML SUBCUT SCH ×4 (06:16→21:21)
[2018-07-19 07:51] LABS: NUCLEATED RED BLOOD CELLS 1 /100 WBC
[2018-07-19 07:53] LABS: PLATELET ESTIMATE SLIGHTLY DECREASED
[2018-07-19 07:54] LABS: MEAN PLATELET VOLUME 10.3 fl (7.4-10.4); PLATELET 121 x1000/uL (130-400)
[2018-07-19] MEDS: FOLIC ACID 1MG TABLET PO SCH (09:36)
[2018-07-19] MEDS: DOCUSATE SODIUM SUGAR FREE 100MG/10ML UDC NG SCH (09:36)
[2018-07-19] MEDS: PANTOPRAZOLE SODIUM 40 MG/VIAL IV SCH (09:36)
[2018-07-19] MEDS: AMLODIPINE 5MG TABLET PO SCH ×2 (09:37→21:00)
[2018-07-19] MEDS: POLYETHYLENE GLYCOL 3350 (17GM) 1 DOSE PACK PO SCH (09:37)
[2018-07-19] MEDS: LEVETIRACETAM 500 MG in SODIUM CHLORIDE 0.9% 100 ML IV SCH ×2 (09:37→21:09)
[2018-07-19] MEDS: DEXTROSE 5% WATER 1,000 ML IV SCH (11:03)
[2018-07-19] MEDS ORDERED: PHYTONADIONE 10MG/ML AMP SUBCUT SCH (13:00)
[2018-07-19 18:58] LABS: CHLORIDE 132 mEq/L (98-107)
[2018-07-20] VITALS (55 sets, daily range): BP systolic 106–137; BP diastolic 65–86
[2018-07-20] MEDS: METOCLOPRAMIDE HCL 10MG/2ML VIAL IV SCH
[2018-07-20] MEDS: ACETAMINOPHEN 650MG/20.3ML UDC PO PRN
[2018-07-20] MEDS: CEFEPIME 1,000 MG in DEXTROSE 5% WATER 50 ML IV SCH ×2 (01:53→14:32)
[2018-07-20 05:29] LABS: HEMOGLOBIN. 9.2 g/dL (12.0-16.0); MEAN CORPUSCULAR HEMOGLOBIN 31.5 pg (28.0-32.0); MEAN CORPUSCULAR VOLUME 95.9 fL (81.0-99.0); MEAN PLATELET VOLUME 10.6 fl (7.4-10.4); PLATELET 56 x1000/uL (130-400); RED BLOOD CELL COUNT 2.92 mill/uL (4.2-5.4); RED CELL DISTRIBUTION WIDTH 19.1 % (11.6-14.6)
[2018-07-20 05:31] LABS: CHLORIDE 130 mEq/L (98-107); INR 1.7; PARTIAL THROMBOPLASTIN TIME 26.3 sec (23.4-31.0); PROTHROMBIN TIME 17.4 sec (9.1-11.1)
[2018-07-20] MEDS: METRONIDAZOLE 500 MG PREMIX 100 ML IV SCH ×3 (05:54→23:00)
[2018-07-20] MEDS: DEXAMETHASONE 4MG/ML 1ML VIAL IV SCH ×4 (05:54→18:44)
[2018-07-20] MEDS: INSULIN LISPRO 100 UNITS/ML SUBCUT SCH ×4 (05:55→23:19)
[2018-07-20] MEDS: BLOOD SUGAR DIAGNOSTIC STRIP TEST SCH ×4 (05:55→21:00)
[2018-07-20] MEDS: DEXTROSE 5% WATER 1,000 ML IV SCH (06:15)
[2018-07-20] MEDS: DOCUSATE SODIUM SUGAR FREE 100MG/10ML UDC NG SCH (09:00)
[2018-07-20] MEDS: AMLODIPINE 5MG TABLET PO SCH ×2 (09:00→23:16)
[2018-07-20] MEDS: FOLIC ACID 1MG TABLET PO SCH (09:00)
[2018-07-20] MEDS: POLYETHYLENE GLYCOL 3350 (17GM) 1 DOSE PACK PO SCH (09:00)
[2018-07-20] MEDS: PANTOPRAZOLE SODIUM 40 MG/VIAL IV SCH (09:45)
[2018-07-20] MEDS: LEVETIRACETAM 500 MG in SODIUM CHLORIDE 0.9% 100 ML IV SCH ×2 (10:44→23:00)
[2018-07-20 13:47] LABS: PLATELET ESTIMATE MARKEDLY DECREASED
[2018-07-20] MEDS ORDERED: SODIUM CHLORIDE 0.9% 10ML VIAL ONE (15:14)
[2018-07-20] MEDS ORDERED: FENTANYL CITRATE/PF 50MCG/ML 2ML VIAL ONE (17:02)
[2018-07-20] MEDS ORDERED: MIDAZOLAM HCL 5 MG/5 ML VIAL ONE (17:02)
[2018-07-20] MEDS ORDERED: DIPHENHYDRAMINE 50MG/ML VIAL ONE (17:02)
[2018-07-20] MEDS ORDERED: MIDAZOLAM HCL 5 MG/5 ML VIAL IV PRN (17:46)
[2018-07-20] MEDS ORDERED: FENTANYL CITRATE/PF 50MCG/ML 2ML VIAL IV PRN (17:47)
[2018-07-20 22:09] LABS: CHLORIDE 130 mEq/L (98-107)
[2018-07-21] VITALS (10 sets, daily range): BP systolic 106–125; BP diastolic 67–80
[2018-07-21] MEDS: METOCLOPRAMIDE HCL 10MG/2ML VIAL IV SCH ×4 (00:08→19:26)
[2018-07-21] MEDS: CEFEPIME 1,000 MG in DEXTROSE 5% WATER 50 ML IV SCH ×2 (02:22→14:32)
[2018-07-21] MEDS: METRONIDAZOLE 500 MG PREMIX 100 ML IV SCH ×2 (06:48→14:33)
[2018-07-21] MEDS: DEXAMETHASONE 4MG/ML 1ML VIAL IV SCH ×2 (06:48→19:26)
[2018-07-21] MEDS: DEXTROSE 5% WATER 1,000 ML IV SCH (06:50)
[2018-07-21] MEDS: INSULIN LISPRO 100 UNITS/ML SUBCUT SCH ×3 (07:10→19:26)
[2018-07-21] MEDS: BLOOD SUGAR DIAGNOSTIC STRIP TEST SCH ×3 (08:21→17:14)
[2018-07-21] MEDS: POLYETHYLENE GLYCOL 3350 (17GM) 1 DOSE PACK PO SCH (08:59)
[2018-07-21] MEDS: LEVETIRACETAM 500 MG in SODIUM CHLORIDE 0.9% 100 ML IV SCH ×2 (08:59→21:04)
[2018-07-21] MEDS: DOCUSATE SODIUM SUGAR FREE 100MG/10ML UDC NG SCH (08:59)
[2018-07-21] MEDS: FOLIC ACID 1MG TABLET PO SCH (08:59)
[2018-07-21] MEDS: PANTOPRAZOLE SODIUM 40 MG/VIAL IV SCH (08:59)
[2018-07-21] MEDS: AMLODIPINE 5MG TABLET PO SCH ×2 (09:00→21:04)
[2018-07-21 09:54] LABS: HEMATOCRIT. 28.8 % (36.0-48.0); HEMOGLOBIN. 8.9 g/dL (12.0-16.0); MEAN CORPUSCULAR HEMOGLOBIN 31.2 pg (28.0-32.0); MEAN CORPUSCULAR VOLUME 101.3 fL (81.0-99.0); RED BLOOD CELL COUNT 2.84 mill/uL (4.2-5.4); RED CELL DISTRIBUTION WIDTH 19.6 % (11.6-14.6)
[2018-07-21 10:27] LABS: PLATELET 107 x1000/uL (130-400)
[2018-07-21 10:28] LABS: NUCLEATED RED BLOOD CELLS 1 /100 WBC
[2018-07-21 15:52] LABS: CHLORIDE 126 mEq/L (98-107)
[2018-07-22] VITALS (12 sets, daily range): BP systolic 90–124; BP diastolic 48–78
[2018-07-22] MEDS: METOCLOPRAMIDE HCL 10MG/2ML VIAL IV SCH ×4 (00:44→17:17)
[2018-07-22] MEDS: INSULIN LISPRO 100 UNITS/ML SUBCUT SCH ×4 (00:46→17:31)
[2018-07-22] MEDS: DEXTROSE 5% WATER 1,000 ML IV SCH ×2 (00:47→14:43)
[2018-07-22] MEDS: DEXAMETHASONE 4MG/ML 1ML VIAL IV SCH ×2 (05:47→17:17)
[2018-07-22] MEDS: BLOOD SUGAR DIAGNOSTIC STRIP TEST SCH ×4 (05:47→17:12)
[2018-07-22] MEDS: DOCUSATE SODIUM SUGAR FREE 100MG/10ML UDC NG SCH (09:03)
[2018-07-22] MEDS: PANTOPRAZOLE SODIUM 40 MG/VIAL IV SCH (09:04)
[2018-07-22] MEDS: POLYETHYLENE GLYCOL 3350 (17GM) 1 DOSE PACK PO SCH (09:04)
[2018-07-22] MEDS: FOLIC ACID 1MG TABLET PO SCH (09:04)
[2018-07-22] MEDS: AMLODIPINE 5MG TABLET PO SCH ×2 (09:04→20:44)
[2018-07-22] MEDS: LEVETIRACETAM 500 MG in SODIUM CHLORIDE 0.9% 100 ML IV SCH ×2 (09:05→20:44)
[2018-07-22] MEDS ORDERED: AMLODIPINE 5MG TABLET PO SCH (11:30)
[2018-07-22 13:45] LABS: CHLORIDE 121 mEq/L (98-107)
[2018-07-22 13:48] LABS: HEMATOCRIT. 28.2 % (36.0-48.0); HEMOGLOBIN. 9.3 g/dL (12.0-16.0); MEAN CORPUSCULAR HEMOGLOBIN 30.8 pg (28.0-32.0); MEAN CORPUSCULAR VOLUME 93.8 fL (81.0-99.0); RED BLOOD CELL COUNT 3.01 mill/uL (4.2-5.4); RED CELL DISTRIBUTION WIDTH 18.7 % (11.6-14.6)
[2018-07-22] MEDS ORDERED: INSULIN GLARGINE UD 100 UNITS/ML SYR SUBCUT SCH (14:00)
[2018-07-22 15:19] LABS: PLATELET ESTIMATE NORMAL
[2018-07-22 15:22] LABS: MEAN PLATELET VOLUME 11.2 fl (7.4-10.4); PLATELET 132 x1000/uL (130-400)
[2018-07-22 16:29] LABS: CLARITY URINE CLOUDY (CLEAR); COLOR URINE DARK YELLOW (YELLOW); KETONES URINE NEGATIVE (NEGATIVE); LEUKOCYTE ESTERASE URINE TRACE (NEGATIVE); NITRITE URINE NEGATIVE (NEGATIVE); OCCULT BLOOD URINE TRACE (NEGATIVE); PROTEIN URINE TRACE (NEGATIVE); SPECIFIC GRAVITY URINE 1.014 (1.005-1.030); UROBILINOGEN URINE 0.2 E.U./dL (0.2-1.0)
[2018-07-22] MEDS: PIPERACILLIN/TAZ 3.375G PREMIX 50 ML IV SCH (22:22)
[2018-07-23] VITALS (12 sets, daily range): BP systolic 100–123; BP diastolic 63–80
[2018-07-23] MEDS: METOCLOPRAMIDE HCL 10MG/2ML VIAL IV SCH ×5 (00:26→23:21)
[2018-07-23] MEDS: INSULIN LISPRO 100 UNITS/ML SUBCUT SCH ×5 (00:27→23:41)
[2018-07-23] MEDS: BLOOD SUGAR DIAGNOSTIC STRIP TEST SCH ×5 (00:27→23:21)
[2018-07-23] MEDS: DEXTROSE 5% WATER 1,000 ML IV SCH ×3 (00:47→20:28)
[2018-07-23] MEDS: PIPERACILLIN/TAZ 3.375G PREMIX 50 ML IV SCH ×4 (04:15→22:11)
[2018-07-23] MEDS: DEXAMETHASONE 4MG/ML 1ML VIAL IV SCH (07:09)
[2018-07-23 07:43] LABS: PHOSPHORUS 2.9 mg/dL (2.5-4.9)
[2018-07-23] MEDS: AMLODIPINE 5MG TABLET PO SCH (09:00)
[2018-07-23] MEDS: DOCUSATE SODIUM SUGAR FREE 100MG/10ML UDC NG SCH (09:00)
[2018-07-23] MEDS: POLYETHYLENE GLYCOL 3350 (17GM) 1 DOSE PACK PO SCH (09:00)
[2018-07-23] MEDS: FOLIC ACID 1MG TABLET PO SCH (09:22)
[2018-07-23] MEDS: PANTOPRAZOLE SODIUM 40 MG/VIAL IV SCH (09:22)
[2018-07-23] MEDS: LEVETIRACETAM 500 MG in SODIUM CHLORIDE 0.9% 100 ML IV SCH ×2 (09:23→20:28)
[2018-07-23 10:14] LABS: HEMATOCRIT. 29.2 % (36.0-48.0); HEMOGLOBIN. 9.4 g/dL (12.0-16.0); MEAN CORPUSCULAR HEMOGLOBIN 31.2 pg (28.0-32.0); MEAN CORPUSCULAR VOLUME 96.8 fL (81.0-99.0); MEAN PLATELET VOLUME 11.4 fl (7.4-10.4); PLATELET 73 x1000/uL (130-400); RED BLOOD CELL COUNT 3.02 mill/uL (4.2-5.4); RED CELL DISTRIBUTION WIDTH 18.1 % (11.6-14.6)
[2018-07-23 10:26] LABS: CHLORIDE 121 mEq/L (98-107)
[2018-07-23 14:52] LABS: NUCLEATED RED BLOOD CELLS 5 /100 WBC
[2018-07-23 14:53] LABS: PLATELET ESTIMATE DECREASED
[2018-07-23] MEDS: AMLODIPINE 2.5MG TABLET PO SCH (20:29)
[2018-07-24] VITALS (13 sets, daily range): BP systolic 103–126; BP diastolic 60–74
[2018-07-24] MEDS: PIPERACILLIN/TAZ 3.375G PREMIX 50 ML IV SCH ×4 (04:33→22:23)
[2018-07-24] MEDS: METOCLOPRAMIDE HCL 10MG/2ML VIAL IV SCH ×3 (04:33→17:48)
[2018-07-24] MEDS: BLOOD SUGAR DIAGNOSTIC STRIP TEST SCH ×4 (05:08→23:43)
[2018-07-24] MEDS: INSULIN LISPRO 100 UNITS/ML SUBCUT SCH ×4 (05:14→23:45)
[2018-07-24 06:25] LABS: CHLORIDE 115 mEq/L (98-107)
[2018-07-24 06:35] LABS: PHOSPHORUS 2.5 mg/dL (2.5-4.9)
[2018-07-24] MEDS: DEXTROSE 5% WATER 1,000 ML IV SCH (06:49)
[2018-07-24] MEDS: LEVETIRACETAM 500 MG in SODIUM CHLORIDE 0.9% 100 ML IV SCH ×2 (08:47→21:03)
[2018-07-24] MEDS: PANTOPRAZOLE SODIUM 40 MG/VIAL IV SCH (08:48)
[2018-07-24] MEDS: DOCUSATE SODIUM SUGAR FREE 100MG/10ML UDC NG SCH ×3 (08:48→09:00)
[2018-07-24] MEDS: FOLIC ACID 1MG TABLET PO SCH (08:49)
[2018-07-24] MEDS: POLYETHYLENE GLYCOL 3350 (17GM) 1 DOSE PACK PO SCH (08:49)
[2018-07-24] MEDS: AMLODIPINE 2.5MG TABLET PO SCH ×2 (08:52→21:00)
[2018-07-24] MEDS ORDERED: DEXAMETHASONE 4MG/ML 1ML VIAL IV SCH (09:00)
[2018-07-24 10:19] LABS: HEMATOCRIT. 26.8 % (36.0-48.0); MEAN CORPUSCULAR HEMOGLOBIN 30.9 pg (28.0-32.0); MEAN PLATELET VOLUME 11.6 fl (7.4-10.4); PLATELET 139 x1000/uL (130-400); RED BLOOD CELL COUNT 2.91 mill/uL (4.2-5.4); RED CELL DISTRIBUTION WIDTH 17.9 % (11.6-14.6)
[2018-07-24] MEDS ORDERED: MAGNESIUM 2 G PREMIX 50 ML IV NR (12:00)
[2018-07-24] MEDS: ACETAMINOPHEN 650MG/20.3ML UDC PO PRN (12:53)
[2018-07-24 13:34] LABS: NUCLEATED RED BLOOD CELLS 5 /100 WBC; PLATELET ESTIMATE NORMAL
[2018-07-24] MEDS ORDERED: INSULIN GLARGINE UD 100 UNITS/ML SYR SUBCUT SCH (22:00)
[2018-07-24] MEDS ORDERED: VANCOMYCIN 1 G PREMIX 200 ML IV SCH (22:00)
[2018-07-25] VITALS (11 sets, daily range): BP systolic 91–114; BP diastolic 47–70
[2018-07-25] MEDS: PIPERACILLIN/TAZ 3.375G PREMIX 50 ML IV SCH ×3 (04:25→17:16)
[2018-07-25] MEDS: METOCLOPRAMIDE HCL 10MG/2ML VIAL IV SCH ×4 (05:34→17:56)
[2018-07-25] MEDS: VANCOMYCIN 750 MG PREMIX 150 ML IV SCH ×2 (05:34→15:27)
[2018-07-25] MEDS: BLOOD SUGAR DIAGNOSTIC STRIP TEST SCH ×3 (05:39→17:55)
[2018-07-25 05:42] LABS: CHLORIDE 115 mEq/L (98-107)
[2018-07-25] MEDS: INSULIN LISPRO 100 UNITS/ML SUBCUT SCH ×3 (05:44→18:00)
[2018-07-25 05:48] LABS: PHOSPHORUS 2.8 mg/dL (2.5-4.9)
[2018-07-25] MEDS: POLYETHYLENE GLYCOL 3350 (17GM) 1 DOSE PACK PO SCH (09:00)
[2018-07-25] MEDS: DOCUSATE SODIUM SUGAR FREE 100MG/10ML UDC NG SCH (09:00)
[2018-07-25 09:25] LABS: BG BASE EXCESS -1.3 mmol/L (-2.0-2.0); BG CARBOXYHEMOGLOBIN 0.8 % (0.5-1.5); BG DEOXYHEMOGLOBIN 2.6 % (0.0-5.0); BG FRACTION INSPIRED OXYGEN 40; BG HCO3 ACT 21.1 mmol/L (22.0-26.0); BG METHEMOGLOBIN 0.5 % (0.0-1.5); BG OXYGEN SATURATION 97.4 % (92.0-98.5); BG OXYHEMOGLOBIN 96.1 % (94.0-97.0); BG PCO2 27.6 mmHg (35.0-45.0); BG PH 7.502 (7.350-7.450); BG PO2 95.7 mmHg (75.0-100.0); BG SAMPLE SITE RIGHT RADIAL; BG TIDAL VOLUME(mL) 500 mL; BG TOTAL HEMOGLOBIN 9.7 g/dL (12.0-18.0); BG VENT MODE VENT - A/C; BG VENT RATE 14 set
[2018-07-25] MEDS: LEVETIRACETAM 500 MG in SODIUM CHLORIDE 0.9% 100 ML IV SCH (09:25)
[2018-07-25] MEDS: FOLIC ACID 1MG TABLET PO SCH (09:26)
[2018-07-25] MEDS: PANTOPRAZOLE SODIUM 40 MG/VIAL IV SCH (09:26)
[2018-07-25 09:49] LABS: HEMATOCRIT. 26.1 % (36.0-48.0); HEMOGLOBIN. 8.8 g/dL (12.0-16.0); MEAN CORPUSCULAR HEMOGLOBIN 31.4 pg (28.0-32.0); MEAN CORPUSCULAR VOLUME 93.4 fL (81.0-99.0); RED BLOOD CELL COUNT 2.79 mill/uL (4.2-5.4); RED CELL DISTRIBUTION WIDTH 18.4 % (11.6-14.6)
[2018-07-25] MEDS ORDERED: LANTUSUD SUBCUT (10:39)
[2018-07-25] MEDS ORDERED: DOCU50LI14 NG (10:39)
[2018-07-25] MEDS ORDERED: POLY17PO3 PO (10:39)
[2018-07-25] MEDS ORDERED: INSLIS SUBCUT (10:39)
[2018-07-25] MEDS ORDERED: KEPP500 MT (10:40)
[2018-07-25] MEDS ORDERED: FLUCONAZOLE 100MG TABLET PO SCH (11:00)
[2018-07-25 12:18] LABS: NUCLEATED RED BLOOD CELLS 1 /100 WBC
[2018-07-25 12:20] LABS: MEAN PLATELET VOLUME 10.9 fl (7.4-10.4); PLATELET 95 x1000/uL (130-400)
[2018-07-25] MEDS ORDERED: FLUCONAZOLE 200 MG/100ML BAG 100 ML IV SCH (13:00)
[2018-07-25] MEDS ORDERED: LEVETIRACETAM 500MG/5ML CUP PO SCH (21:00)
== END 2018-07-25 21:35 | DRG 4 ==
LOC: ER → 7WST 04:02 → ENRESERV 07:07 → 5EST 07-10 09:03 → MICUSO 07-10 14:50 → 5EST 07-20 09:45
PROVIDERS: ADMIT Internal Medicine; ATTEND Family Medicine
PROC: 5A1955Z Respiratory Ventilation, Greater than 96 Consecutive Hours (ICD-10-PCS; 2018-07-10)
PROC: 00C70ZZ Extirpation of Matter from Cerebral Hemisphere, Open Approach (ICD-10-PCS; 2018-07-10)
PROC: 0BH18EZ Insertion of Endotracheal Airway into Trachea, Via Natural or Artificial Opening Endoscopic (ICD-10-PCS; 2018-07-10)
PROC: 009600Z Drainage of Cerebral Ventricle with Drainage Device, Open Approach (ICD-10-PCS; 2018-07-10)
PROC: 00U207Z Supplement Dura Mater with Autologous Tissue Substitute, Open Approach (ICD-10-PCS; 2018-07-10)
PROC: B5181ZA Fluoroscopy of Superior Vena Cava using Low Osmolar Contrast, Guidance (ICD-10-PCS; 2018-07-10)
PROC: 02HV33Z Insertion of Infusion Device into Superior Vena Cava, Percutaneous Approach (ICD-10-PCS; 2018-07-10)
PROC: B548ZZA Ultrasonography of Superior Vena Cava, Guidance (ICD-10-PCS; 2018-07-10)
PROC: 00C70ZZ Extirpation of Matter from Cerebral Hemisphere, Open Approach (ICD-10-PCS; principal; 2018-07-11)
PROC: 00U207Z Supplement Dura Mater with Autologous Tissue Substitute, Open Approach (ICD-10-PCS; 2018-07-11)
PROC: 00H032Z Insertion of Monitoring Device into Brain, Percutaneous Approach (ICD-10-PCS; 2018-07-11)
PROC: 4A103BD Monitoring of Intracranial Pressure, Percutaneous Approach (ICD-10-PCS; 2018-07-11)
PROC: 30233P1 Transfusion of Nonautologous Frozen Red Cells into Peripheral Vein, Percutaneous Approach (ICD-10-PCS; 2018-07-11)
PROC: 30233N1 Transfusion of Nonautologous Red Blood Cells into Peripheral Vein, Percutaneous Approach (ICD-10-PCS; 2018-07-11)
PROC: 30233R1 Transfusion of Nonautologous Platelets into Peripheral Vein, Percutaneous Approach (ICD-10-PCS; 2018-07-11)
PROC: 30233M1 Transfusion of Nonautologous Plasma Cryoprecipitate into Peripheral Vein, Percutaneous Approach (ICD-10-PCS; 2018-07-11)
PROC: 0GBJ0ZZ Excision of Thyroid Gland Isthmus, Open Approach (ICD-10-PCS; 2018-07-18)
PROC: 0B110F4 Bypass Trachea to Cutaneous with Tracheostomy Device, Open Approach (ICD-10-PCS; 2018-07-18)
PROC: 0DH63UZ Insertion of Feeding Device into Stomach, Percutaneous Approach (ICD-10-PCS; 2018-07-20)
DX: A41.9 Sepsis, unspecified organism (principal); D65 Disseminated intravascular coagulation [defibrination syndrome]; G93.6 Cerebral edema; E43 Unspecified severe protein-calorie malnutrition; I60.9 Nontraumatic subarachnoid hemorrhage, unspecified; I61.5 Nontraumatic intracerebral hemorrhage, intraventricular; G93.41 Metabolic encephalopathy; I62.00 Nontraumatic subdural hemorrhage, unspecified; J69.0 Pneumonitis due to inhalation of food and vomit; G91.9 Hydrocephalus, unspecified; I85.00 Esophageal varices without bleeding; A59.9 Trichomoniasis, unspecified; J98.11 Atelectasis; J96.00 Acute respiratory failure, unspecified whether with hypoxia or hypercapnia; D57.00 Hb-SS disease with crisis, unspecified; E87.5 Hyperkalemia; I27.20 Pulmonary hypertension, unspecified; E44.0 Moderate protein-calorie malnutrition; G81.91 Hemiplegia, unspecified affecting right dominant side; N39.0 Urinary tract infection, site not specified; I50.42 Chronic combined systolic (congestive) and diastolic (congestive) heart failure; D75.89 Other specified diseases of blood and blood-forming organs; E11.65 Type 2 diabetes mellitus with hyperglycemia; E87.0 Hyperosmolality and hypernatremia; I11.0 Hypertensive heart disease with heart failure; I61.1 Nontraumatic intracerebral hemorrhage in hemisphere, cortical; K31.89 Other diseases of stomach and duodenum; K74.60 Unspecified cirrhosis of liver; K80.20 Calculus of gallbladder without cholecystitis without obstruction; M81.0 Age-related osteoporosis without current pathological fracture; D72.828 Other elevated white blood cell count; R13.10 Dysphagia, unspecified; I95.9 Hypotension, unspecified; R18.8 Other ascites; R31.0 Gross hematuria; R56.9 Unspecified convulsions; T38.0X5A Adverse effect of glucocorticoids and synthetic analogues, initial encounter; Y92.89 Other specified places as the place of occurrence of the external cause; Z88.5 Allergy status to narcotic agent; Z88.8 Allergy status to other drugs, medicaments and biological substances; Z88.6 Allergy status to analgesic agent; Z86.73 Personal history of transient ischemic attack (TIA), and cerebral infarction without residual deficits; Z99.11 Dependence on respirator [ventilator] status; Z68.26 Body mass index [BMI] 26.0-26.9, adult; I42.9 Cardiomyopathy, unspecified
CPT/HCPCS: 36415; 36569; 36600; 70544; 70553; 71045; 74018; 76700; 76705; 76937; 77001; 80048; 80061; 80076; 80305; 81400; 81403; 81407; 81479; 82140; 82248; 82270; 82375; 82570; 82607; 82746; 82784; 82805; 82962; 83021; 83036; 83605; 83735; 83880; 83935; 84100; 84134; 84145; 84300; 84439; 84443; 84478; 84481; 84484; 85014; 85018; 85044; 85300; 85303; 85306; 85613; 85660; 85732; 86147; 86334; 86705; 86709; 86803; 86850; 86900; 86920; 86927; 87015; 87045; 87070; 87077; 87106; 87340; 87427; 87449; 88304; 93005; 93306; 93880; 93970; 94002; 94003; 94640; 96374; 96375; 99285; A6261; A9577; C1713; C1725; C1758; C1769; C9113; C9132; G0482; J0690; J0692; J0696; J1100; J1200; J1450; J1815; J1953; J2250; J2270; J2370; J2405; J2543; J2704; J2765; J3010; J3370; J3430; J3475; J3480; J3490; J7040; J7050; J7060; J7070; J7120; J7121; P9012; P9016; P9017; P9034; Q0163; Q9967; A4315